=== PATIENT | male | born 1975 | race Native Hawaiian/Other Pacific Islander ===

== ENCOUNTER 2019-01-02 17:57 | Outpatient (CLI) | payer BC | END 2019-01-02 18:13 | disposition short-term general hospital (02) | LOC: AMB 17:57 | DX: R07.89 Other chest pain (principal) | CPT/HCPCS: A0425; A0427 ==

== ENCOUNTER 2019-01-02 18:17 | Emergency (ER) | payer BC ==
[~2019-01-02] VITALS: Ht 177.8 cm; Wt 113.4 kg
[2019-01-02 18:38] LABS: PLATELET COUNT 169 K/uL (142-355)
[2019-01-02 18:53] LABS: POTASSIUM 3.3 mmol/L (3.6-5.2); SODIUM 139 mmol/L (136-145)
[2019-01-02 20:48] VITALS: BP 142/70; TEMP 98
== END 2019-01-02 20:50 | disposition home or self-care (01) ==
LOC: ED 18:17
PROVIDERS: Family Medicine
DX: R00.2 Palpitations (principal); I10 Essential (primary) hypertension; R07.89 Other chest pain; R00.0 Tachycardia, unspecified
CPT/HCPCS: 36415; 80053; 80307; 81000; 82550; 84484; 85027; 93005; 99283

== ENCOUNTER 2021-10-09 16:28 | Outpatient (CLI) | payer BC | END 2021-10-09 20:46 | disposition home or self-care (01) | LOC: RAD 16:28 | PROVIDERS: ATTEND Nurse Practitioner Family | DX: R91.8 Other nonspecific abnormal finding of lung field (principal); J98.11 Atelectasis ==